=== PATIENT | male | born 1995 | race Two or more races ===

== ENCOUNTER 2025-05-13 11:55 | Emergency (ER) | payer BC, OTHER ==
[~2025-05-13] VITALS: Ht 172.7 cm; Wt 90.7 kg
[2025-05-13 14:09] LABS: PLATELET COUNT (AUTO) 298 K/uL (152-348); RED BLOOD CELL COUNT(AUTO) 4.53 MIL/uL (4.06-5.63); RED CELL DISTRIBUTION WIDTH 13.5 % (12.1-16.2); WHITE BLOOD COUNT (AUTO) 6.8 K/uL (3.6-10.2)
[2025-05-13] MEDS ORDERED: CYCLOBENZAPRINE HCL 10 MG TABLET ONE (14:23)
[2025-05-13] MEDS ORDERED: ACETAMINOPHEN 500 MG TABLET ONE (14:23)
[2025-05-13] MEDS: IV NORMAL SALINE 1000 ML BAG IV ONE (14:24)
[2025-05-13] MEDS: CYCLOBENZAPRINE HCL 10 MG TABLET PO ONE (14:24)
[2025-05-13] MEDS: ACETAMINOPHEN 500 MG TABLET PO ONE (14:26)
[2025-05-13 14:27] LABS: CREATININE 0.8 mg/dL (0.6-1.3); SODIUM SERUM 142.0 mmol/L (136-145); UREA NITROGEN, BLOOD 16.0 mg/dL (7-18)
[2025-05-13] MEDS ORDERED: IOHEXOL 300MG/ML 100 ML INFUS..BTL ONE (14:52)
[2025-05-13] MEDS ORDERED: IV NORMAL SALINE 250 ML IV ONE (14:52)
[2025-05-13] MEDS ORDERED: SWABABLE VALVE TRANSFER SET EA MC ONE (14:53)
[2025-05-13 15:02] VITALS: BP 117/76
[2025-05-13] MEDS ORDERED: IBUP600T51 PO (16:12)
[2025-05-13] MEDS ORDERED: CYCL5TAB4 PO (16:12)
[2025-05-13] MEDS ORDERED: LIDO700A30 TP (16:12)
[2025-05-13 16:42] VITALS: BP 117/76; O2SAT 98
== END 2025-05-13 16:42 | disposition home or self-care (01) ==
LOC: ER 11:55
DX: S30.11XA Contusion of abdominal wall, initial encounter (principal); S80.01XA Contusion of right knee, initial encounter; S00.93XA Contusion of unspecified part of head, initial encounter; M79.601 Pain in right arm; V89.0XXA Person injured in unspecified motor-vehicle accident, nontraffic, initial encounter; Y93.89 Activity, other specified; Y92.410 Unspecified street and highway as the place of occurrence of the external cause; Y99.9 Unspecified external cause status
CPT/HCPCS: 99285; 70450; 96360; 80048; 85025; 85730; 86850 ×2; 86900; 86901; 36415; 71260; 72125; 74177; Q9967; J7040; A4606; A4663; A9150